=== PATIENT | female | born 1965 | race Caucasian/White ===

== ENCOUNTER 2018-07-24 18:22 | Emergency (ER) | payer OTHER ==
[2018-07-24 20:58] LABS: ADD MAN DIFF? NO
[2018-07-24 21:03] LABS: WHITE BLOOD COUNT 8.8 10^3/ul (4.8-10.8)
[2018-07-24 21:03] LABS: BASOPHIL # 0.1 10^3/ul (0.0-0.1); BASOPHILS % 0.6 % (0.0-2.0); EOSINOPHILS # 0.2 10^3/ul (0.0-0.5); EOSINOPHILS % 1.7 % (0.0-7.0); HEMATOCRIT 40.6 % (37.0-47.0); HEMOGLOBIN 12.8 g/dl (12.0-16.0); LYMPHOCYTES # 2.1 10^3/ul (0.8-2.9); LYMPHOCYTES % 24.1 % (15.0-51.0); MEAN CORPUSCULAR HEMOGLOBIN 29.5 pg (29.0-33.0); MEAN CORPUSCULAR HGB CONC 31.5 g/dl (32.0-37.0); MEAN CORPUSCULAR VOLUME 93.5 fl (82.0-101.0); MEAN PLATELET VOLUME 10.1 fl (7.4-10.4); MONOCYTE # 0.6 10^3/ul (0.3-0.9); MONOCYTES % 6.8 % (0.0-11.0); NEUTROPHIL # 5.8 10^3/ul (1.6-7.5); NEUTROPHILS % 66.1 % (39.0-77.0); PLATELET COUNT 260 10^3/UL (140-415); RED BLOOD COUNT 4.34 10^6/ul (4.20-5.40); RED CELL DISTRIBUTION WIDTH 13.9 % (11.5-14.5)
[2018-07-24] MEDS: ACETAMINOPHEN 325 MG TAB PO (21:07)
[2018-07-24] MEDS: CEFTRIAXONE 1 GM/50 ML (PMX) 50 ML IVPB (21:08)
[2018-07-24] MEDS: ONDANSETRON 4 MG INJ IV (21:08)
[2018-07-24] MEDS: SODIUM CHLORIDE 0.9% 1L BAG IV* (21:08)
[2018-07-24 21:22] LABS: PROTIME 12.3 Sec (11.9-14.9)
[2018-07-24 21:22] LABS: LACTIC ACID 1.1 mmol/L (0.5-2.0)
[2018-07-24 21:23] LABS: PARTIAL THROMBOPLASTIN TIME 24.6 Sec (23.0-35.0)
[2018-07-24 21:24] LABS: ALANINE AMINOTRANSFERASE 39 IU/L (13-69); ALBUMIN 4.3 g/dl (3.3-4.9); ALKALINE PHOSPHATASE 107 IU/L (42-121); ANION GAP 12 (5-13); ASPARTATE AMINO TRANSFERASE 41 IU/L (15-46); BILIRUBIN,INDIRECT 0.5 mg/dl (0-1.1); BILIRUBIN,TOTAL 0.5 mg/dl (0.2-1.3); BLOOD UREA NITROGEN 12 mg/dl (7-20); CALCIUM 9.4 mg/dl (8.4-10.2); CARBON DIOXIDE 24 mmol/L (21-31); CHLORIDE 106 mmol/L (97-110); CREATININE 0.78 mg/dl (0.44-1.00); Estimated GFR > 60 mL/min (>60); GLUCOSE 105 mg/dl (70-220); POTASSIUM 3.8 mmol/L (3.5-5.1); SODIUM 142 mmol/L (135-144); TOTAL PROTEIN 8.2 g/dl (6.1-8.1)
[2018-07-24 21:26] LABS: LIPASE 134 U/L (23-300)
[2018-07-24 21:35] LABS: TROPONIN-I < 0.012 ng/ml (0.000-0.120)
[2018-07-24 21:38] LABS: ADD UMIC YES; UR ASCORBIC ACID NEGATIVE (NEGATIVE); UR BACTERIA MODERATE /HPF (NONE SEEN); UR BILIRUBIN (Dip) NEGATIVE (NEGATIVE); UR BLOOD (Dip) 2+ mg/dL (NEGATIVE); UR CLARITY CLOUDY (CLEAR); UR COLOR YELLOW (YELLOW); UR GLUCOSE (Dip) NEGATIVE (NEGATIVE); UR KETONES (Dip) NEGATIVE (NEGATIVE); UR LEUKOCYTE ESTERASE (Dip) 3+ Leu/ul (NEGATIVE); UR MUCUS FEW /HPF (NONE SEEN); UR NITRITE (Dip) POSITIVE (NEGATIVE); UR RBC 5 /HPF (0-5); UR SPECIFIC GRAVITY (Dip) 1.013 (1.003-1.030); UR TOTAL PROTEIN (Dip) NEGATIVE (NEGATIVE); UR UROBILINOGEN (Dip) NEGATIVE (NEGATIVE); UR WBC 16 /HPF (0-5)
[2018-07-24 22:55] LABS: LACTIC ACID 0.8 mmol/L (0.5-2.0)
== END 2018-07-25 | disposition home or self-care (01) ==
LOC: E/R 07-25
DX: N30.90 Cystitis, unspecified without hematuria (principal); R40.2142 Coma scale, eyes open, spontaneous, at arrival to emergency department; R40.2252 Coma scale, best verbal response, oriented, at arrival to emergency department; R40.2362 Coma scale, best motor response, obeys commands, at arrival to emergency department; R10.11 Right upper quadrant pain
CPT/HCPCS: 36415; 71045; 74176; 80053; 81001; 83605; 83690; 84484; 85025; 85610; 85730; 87040; 87086; 93005; 96361; 96365; 96375; 99285-25